=== PATIENT | male | born 1955 | race Caucasian/White ===

== ENCOUNTER 2018-08-29 08:54 | Emergency (ER) | payer OTHER, MEDICAID ==
--- NOTE | 2018-08-29 09:33 | EDPHY ---
H & P Time Seen by Provider: 08/29/18 09:33 HPI/ROS: Chief complaint. Fall HPI. 63-year-old male presents emergency department with neck pain after 6 ft fall yesterday. 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 He had placed the ramp up but apparently going in to get the trolley and bring it back out the ramp went down. He backed off the edge in fell flat on his back. He says he did not strike his head or lose consciousness. He initially felt okay after lying there and then gradually through the afternoon evening he has upper neck pain. Slight paresthesias to his left hand. No weakness to his left hand. Also complains of left shoulder pain. He has had previous left shoulder surgery. No chest pain or shortness of breath. No abdominal pain. ROS 10 systems were reviewed and negative with the exception of the elements mentioned in the history of present illness Past Medical/Surgical History: Shoulder surgery Social History: Single, nonsmoker, no alcohol Smoking Status: Never smoked Physical Exam: General Appearance: Alert well-developed male mild distress vital signs are stable Eyes: Pupils equal and round no pallor or injection. ENT, Mouth: Mucous membranes are moist. Respiratory: There are no retractions, lungs are clear to auscultation. Cardiovascular: Regular rate and rhythm. Gastrointestinal: Abdomen is soft and nontender, no masses, bowel sounds normal. Neurological: Awake and alert, sensory and motor exams grossly normal. Skin: Warm and dry, no rashes. Musculoskeletal: Diffuse tenderness about the neck but some over the upper cervical spine. No T, L, S spine tenderness. Extremities tenderness to palpation of the left shoulder without obvious trauma or deformity Psychiatric: Patient is oriented X 3, there is no agitation. Constitutional: Initial Vital Signs Temperature (C) 36.9 C 08/29/18 09:08 Heart Rate 92 08/29/18 09:08 Respiratory Rate 17 08/29/18 09:08 Blood Pressure 146/103 H 08/29/18 09:08 O2 Sat (%) 94 08/29/18 09:08 O2 Delivery Mode Room Air Allergies/Adverse Reactions: No Known Allergies Allergy (Unverified 08/29/18 09:07) Home Medications: Medication Instructions Recorded Cyclobenzaprine [Flexeril 10 MG 10 mg PO TID PRN #15 tab 08/29/18 (*)] Hydrocodone/APAP 5/325 [Fontana 1 each PO Q4-6PRN PRN #10 tab 08/29/18 5/325 (*)] Medical Decision Making - Diagnostics Imaging Results: Imaging Impressions Cervical Spine CT 08/29/18 09:44 Impression: 1. No acute posttraumatic abnormality identified. If there is persistent pain or neurologic deficit, consider MRI and/or flexion and extension views if clinically indicated. 2. 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 Findings discussed with Aric Finch on 08/29/2018 at 10:46 a.m. Shoulder X-Ray 08/29/18 09:45 Impression: 1. Previous surgical resection distal head left clavicle. 2. No acute osseous abnormality seen left shoulder. CT cervical spine shows DJD but no fracture dislocation X-ray left shoulder shows no fracture or dislocation ED Course/Re-evaluation: Re-evaluation and patient is stable. He and I discussed imaging studies. We discussed treatment plan including criteria for return and importance of follow- up and further evaluation. He expresses understanding and agreement Differential Diagnosis: I considered fracture, dislocation, cervical sprain Departure - Departure Disposition: Home, Routine, Self-Care Clinical Impression: Acute cervical myofascial strain Qualifiers: Encounter type: initial encounter Qualified Code(s): S16.1XXA - Strain of muscle, fascia and tendon at neck level, initial encounter Condition: Good Instructions: Cervical Strain (ED) Additional Instructions: Ice to sore areas of neck and shoulder next 24 hr Ibuprofen 600 mg every 6 hr for discomfort. Hydrocodone in addition for discomfort if necessary. Hydrocodone contains some Tylenol so do not take hydrocodone and Tylenol. May use ibuprofen and hydrocodone together Activity as tolerated Return for worsening symptoms Recheck in 2-3 days if not improving Referrals: NONE *PRIMARY CARE P,. [Primary Care Provider] - As per Instructions Work Comp Ref/Restrictions [Outside] - 2-3 days, if not improved Prescriptions: Cyclobenzaprine [Flexeril 10 MG (*)] 10 mg PO TID PRN #15 tab PRN Reason: Spasms Hydrocodone/APAP 5/325 [Fontana 5/325 (*)] 1 each PO Q4-6PRN PRN #10 tab PRN Reason: Pain, Moderate
[2018-08-29 11:19] VITALS: BP 139/94
== END 2018-08-29 11:17 | disposition home or self-care (01) ==
DX: S16.1XXA Strain of muscle, fascia and tendon at neck level, initial encounter (principal); W01.198A Fall on same level from slipping, tripping and stumbling with subsequent striking against other object, initial encounter; Y99.0 Civilian activity done for income or pay